=== PATIENT | male | born 1950 | race Caucasian/White ===

== ENCOUNTER → 2018-05-11 | Outpatient (CLI) | payer OTHER ==
[~2018-05-11] MED LIST: ASPI-621 PO; ATOR80TA PO; BLOOD PRESSURE PO; CARV3.1212 PO; CARV6.252 PO; ENAL2.5T32 PO; HYDR-3237 PO; LOSA25TA6 PO; NITR0.4T28 SL; REGADENOSON 0.4 MG/5 ML SYRINGE ONE; TICA90TA PO
== END | disposition home or self-care (01) ==
LOC: CFH 07:03
PROVIDERS: ATTEND Nurse Practitioner Family
DX: I08.0 Rheumatic disorders of both mitral and aortic valves (principal); I21.19 ST elevation (STEMI) myocardial infarction involving other coronary artery of inferior wall; I25.10 Atherosclerotic heart disease of native coronary artery without angina pectoris; I25.5 Ischemic cardiomyopathy; I25.2 Old myocardial infarction; I10 Essential (primary) hypertension; E78.5 Hyperlipidemia, unspecified; E11.9 Type 2 diabetes mellitus without complications; Z95.0 Presence of cardiac pacemaker
CPT/HCPCS: 78452; 93017; 93306; A9502; J2785

== ENCOUNTER → 2020-08-13 | Outpatient (CLI) | payer OTHER, MEDICARE ==
[~2020-08-13] MED LIST changes: -ASPI-621 PO; +ASPI81TA45 PO; +LOSA25TA25 PO; -LOSA25TA6 PO; +METF500T17 PO
== END | disposition home or self-care (01) ==
LOC: CFH 06:48
PROVIDERS: ATTEND Internal Medicine Cardiovascular Disease
DX: I08.8 Other rheumatic multiple valve diseases (principal); I25.10 Atherosclerotic heart disease of native coronary artery without angina pectoris; I21.09 ST elevation (STEMI) myocardial infarction involving other coronary artery of anterior wall; I71.2 Thoracic aortic aneurysm, without rupture
CPT/HCPCS: 78452; 93017; 93306; A9502; J2785